=== PATIENT | female | born 1980 | race Caucasian/White ===

== ENCOUNTER 2018-04-26 09:10 | Inpatient (IN) | payer OTHER ==
[~2018-04-26 09:10] MED LIST: ELECTROLYTE-148 SOLN 1,000 ML IV ONE
[2018-04-26] MEDS ORDERED: CITRIC ACID/SODIUM CITRATE 30 ML UNIT-DOSE CUP PO ONE (09:26)
[2018-04-26] MEDS ORDERED: ELECTROLYTE-148 SOLN 1,000 ML IV SCH (09:30)
[2018-04-26 10:17] VITALS: BMI 44.6
[2018-04-26] MEDS ORDERED: TUBERCULIN PPD 5 TU/0.1ML SYRINGE (IN PATIENT USE ONLY) ID ONE (11:00)
--- NOTE | 2018-04-26 11:24 | HP ---
Past Medical History - Primary Care Physician PCP:: Joel Chiang - Admission Chief Complaint: 36 weeks, twins gestation , twin a breech , twinb iugr,, PIH History of Present Illness: 37 yo f g1 po with twins gestation 36 weeks , PIH, twinb iugr, referred by MFM for c/s , risks discussed History Source: Patient Limitations to Obtaining History: No Limitations - Past Medical History ...: 1 ...Para: 0 ...Term: 0 ...: 0 ...Spon : 0 ...Induced : 0 ...Multiple Gestation: 1 ...LMP: 08/20/17 ... Weeks Gestation by Dates: 35.3 ...EDC by Dates: 05/28/18 ...EDC by Sono: 05/24/18 Heme/Onc: Yes: Anemia - Past Surgical History Hx Myomectomy: No Hx Transabdominal Cerclage: No - Smoking History Smoking history: Never smoked Have you smoked in the past 12 months: No - Alcohol/Substance Use Hx Alcohol Use: No - Social History Usual Living Arrangement: Yes: With Spouse History of Recent Travel: No Home Medications - Allergies Allergies/Adverse Reactions: Allergies Allergy/AdvReac Type Severity Reaction Status Date / Time latex Allergy Intermediate Itching Verified 04/26/18 10:30 No Known Drug Allergies Allergy Verified 04/26/18 10:30 - Home Medications Home Medications: Ambulatory Orders Ferrous Sulfate [Feosol] 325 mg PO DAILY 04/20/18 Vitamins (Sjr) - 1 tab PO DAILY 04/26/18 Review of Systems - Review of Systems Constitutional: reports: No Symptoms HENT: reports: No Symptoms Neck: reports: No Symptoms Cardiovascular: reports: No Symptoms Respiratory: reports: No Symptoms Gastrointestinal: reports: No Symptoms Genitourinary: reports: No Symptoms Breasts: reports: No Symptoms Reported Musculoskeletal: reports: No Symptoms Integumentary: reports: No Symptoms Neurological: reports: No Symptoms Endocrine: reports: No Symptoms Hematology/Lymphatic: reports: No Symptoms Psychiatric: reports: No Symptoms Physical Exam - Maternity Vital Signs: Vital Signs Temperature 98.6 F 04/26/18 09:10 Pulse Rate 79 04/26/18 11:04 Respiratory Rate 17 04/26/18 11:04 Blood Pressure 158/96 04/26/18 11:04 O2 Sat by Pulse Oximetry (%) Constitutional: Yes: Well Nourished, No Distress, Calm Eyes: Yes: WNL, Conjunctiva Clear, EOM Intact HENT: Yes: WNL, Atraumatic, Normocephalic Neck: Yes: WNL, Supple, Trachea Midline Cardiovascular: Yes: WNL, Regular Rate and Rhythm Breast(s): Yes: WNL - Abdominal Exam/OB Fundal Height: 40 Number of Fetuses: Multiple Presentation: Vertex, Breech Contractions: No Regularity: Irritability Intensity: Unaware Monitor Mode: External Heart Rate Location: LUQ, RLQ Category: I Accelerations: Uniform Decelerations: None - Vaginal Exam/OB Vaginal Bleediing: No Speculum Exam: No Dilatation (cm): closed Effacement (%): 0 Amniotic Membrane Status: Intact Presentation: Nilson Breech Station: -3 - Physical Exam Musculoskeletal: Yes: Back Pain Edema: Yes Edema: LLE: 1+, RLE: 1+ Deep Tendon Reflex Grade: Normal +2 Hemorrhage Risk Assessment - Risk Factors Medium Risk Factors: Yes: Multiple gestation Risk Score: 1 Risk Level: Medium Risk Problem List - Problems (1) with 36 completed weeks gestation Code(s): Z3A.36 - 36 WEEKS GESTATION OF (2) PIH ( induced hypertension), antepartum (4) Advanced maternal age (AMA) in Code(s): UCX7966 - Assessment/Plan admit for c/s
[2018-04-26 12:20] LABS: URINE APPEARANCE SLCLOUDY; URINE BILIRUBIN NEGATIVE (<2.0 mg/dL); URINE COLOR DKYELLOW; URINE GLUCOSE (UA) NEGATIVE (NEGATIVE); URINE KETONE NEGATIVE (NEGATIVE); URINE LEUK ESTERASE NEGATIVE (NEGATIVE); URINE NITRITE NEGATIVE (NEGATIVE); URINE UROBILINOGEN NEGATIVE mg/dL (0.2-1.0)
[2018-04-26 12:25] LABS: URINE PROTEIN 2+ (NEGATIVE)
[2018-04-26 12:31] LABS: EPI CELLS RARE /HPF (FEW); URINE HYALINE CAST 2 /lpf; URINE MUCUS RARE
[2018-04-26] MEDS ORDERED: LABETALOL HCL 5 MG/1 ML (100MG/20 ML VIAL) ONE (12:52)
[2018-04-26] MEDS ORDERED: LABETALOL HCL 5 MG/1 ML (100MG/20 ML VIAL) IVPB ONE (13:07)
[2018-04-26] MEDS ORDERED: PHENYLEPHRINE HCL 10 MG/1 ML SINGLE DOSE VIAL ONE (14:56)
[2018-04-26] MEDS ORDERED: morphine SULFATE/Preservative Free 0.5 MG/ML (1cc Syringe) ONE (14:56)
[2018-04-26] MEDS ORDERED: BUPIVACAINE 0.75% IN DEXTROSE/PF 2ML AMPULE NR ONE (14:57)
[2018-04-26] MEDS ORDERED: ONDANSETRON 4 MG/2 ML VIAL IVPUSH PRN (15:21)
[2018-04-26] MEDS ORDERED: ACETAMINOPHEN 325 MG TABLET (FP) PO PRN (15:21)
[2018-04-26] MEDS ORDERED: OXYTOCIN 20 UNITS in 0.9% NS 40 UNIT/2,000 ML INFUS.BAG IV ONE (15:37)
[2018-04-26] MEDS ORDERED: WITCH HAZEL 50% (TUCKS) 40 PAD/JAR PAD TP PRN (15:52)
[2018-04-26] MEDS ORDERED: diphenhydrAMINE HCL 25 MG CAPSULE (FP) PO PRN (15:52)
[2018-04-26] MEDS ORDERED: METHYLERGONOVINE MALEATE 0.2 MG/1 ML AMP IM PRN (15:52)
[2018-04-26] MEDS ORDERED: oxyCODONE HCL 5 MG TABLET PO PRN (15:52)
[2018-04-26] MEDS ORDERED: BENZOCAINE 20% 57 GM BOTTLE TP PRN (15:52)
[2018-04-26] MEDS ORDERED: BENZOCAINE 28 GM HEMORRHOIDAL OINTMENT PR PRN (15:52)
[2018-04-26] MEDS ORDERED: OXYTOCIN 20 UNITS in 0.9% NS 20 UNIT/1,000 ML INFUS.BAG IV SCH ×2 (16:00→23:59)
[2018-04-26] MEDS ORDERED: DEXTROSE 5%-LACTATED RINGERS 1,000 ML IV SCH (16:00)
[2018-04-26] MEDS ORDERED: ACETAMINOPHEN INJECTION 100 ML IVPB ONE (17:13)
[2018-04-26] MEDS ORDERED: OXYTOCIN 20 UNITS in 0.9% NS 20 UNIT/1,000 ML INFUS.BAG IV ONE (17:19)
[2018-04-26] MEDS: ACETAMINOPHEN 1000 MG/100 ML VIAL (NON FORMULARY) IVPB PRN ×2 (17:20→23:46)
[2018-04-26] MEDS ORDERED: IBUPROFEN 800 MG/8 ML IJ IVPB ONE ×2 (17:56→18:15)
[2018-04-26] MEDS ORDERED: CEFAZOLIN 1 GM in DEXTROSE 5%-WATER - 50 ML IVPB SCH (18:00)
[2018-04-26] MEDS ORDERED: LABETALOL HCL 200 MG TABLET (FP) PO PRN (18:27)
[2018-04-26] MEDS ORDERED: DEXTROSE 5%-WATER - 50 ML IVPB ONE (21:00)
[2018-04-26] MEDS ORDERED: ceFAZolin SODIUM 1 GM VIAL ONE (21:00)
[2018-04-26] MEDS: CEFAZOLIN 1 GM in DEXTROSE 5%-WATER - 50 ML IVPB SCH (21:05)
[2018-04-27] MEDS ORDERED: DEXTROSE 5%-WATER - 50 ML IVPB ONE (06:11)
[2018-04-27] MEDS ORDERED: ceFAZolin SODIUM 1 GM VIAL ONE (06:11)
[2018-04-27] MEDS: ACETAMINOPHEN 1000 MG/100 ML VIAL (NON FORMULARY) IVPB PRN (06:13)
[2018-04-27] MEDS: CEFAZOLIN 1 GM in DEXTROSE 5%-WATER - 50 ML IVPB SCH (06:48)
[2018-04-27 08:05] LABS: BASO % 0.8 % (0-2.0); EOS % 0.8 % (0-4.5); HEMATOCRIT 34.9 % (32.4-45.2); LYMPH % 16.9 % (8-40); MCH 29.9 pg (25.7-33.7); MCHC 34.3 g/dl (32.0-36.0); MEAN CELL VOLUME 87.3 fl (80-96); MEAN PLT VOLUME 8.1 fl (7.5-11.1); MONO % 6.8 % (3.8-10.2); NEUT % 74.7 % (42.8-82.8); PLATELET COUNT 225 K/MM3 (134-434); RDW 13.9 % (11.6-15.6); WHITE BLOOD COUNT 14.2 K/mm3 (4.0-10.0)
[2018-04-27] MEDS: SIMETHICONE 80 MG TAB.CHEW (FP) PO PRN ×4 (09:24→21:02)
[2018-04-27] MEDS: ENOXAPARIN NA (PORCINE) 40 MG/0.4 ML DISP.SYRIN SQ SCH (09:24)
--- NOTE | 2018-04-27 10:28 | CONSULT ---
Consult - text type - Consultation Consultation Note: Renal Consult for hypertension This is a 37 year old woman who presented at 36 weeks twin gestation with PIH/ hypertension. Pt reports history of hypertension prior to that was tx with metoprolol but was discontinued b/c of drowsiness. BP was well controlled during pregnacy until last trimester when it was mildly elevated. Pt denies any HERNANDEZ, CP, SOb, N/V/D. Has 8/10 Abd pain. + leg swelling. Gained about 50 lbs during . PMhx: as above Allergies: NKDA Family Hx: Father has hypertension (diagnosed in 40's) Social hx: No T/A/D RoS: as per HPI Vital Signs Temperature 97.6 F 04/27/18 07:50 Pulse Rate 62 04/27/18 07:50 Respiratory Rate 20 04/27/18 08:00 Blood Pressure 141/93 04/27/18 07:50 O2 Sat by Pulse Oximetry (%) 99 04/26/18 17:10 Intake & Output 04/24/18 04/25/18 04/26/18 04/27/18 23:59 23:59 23:59 23:59 Intake Total 3100 1800 Output Total 900 Balance 3100 900 Weight 117.934 kg Mild distress due to pain MMM, No JVD, Neck supple + LE/ankle edema no clubbing or cyanosis CBC, BMP 04/27/18 07:42 Laboratory Tests 04/26/18 11:10 Urine Protein 2+ H Current Medications Acetaminophen (Tylenol -) 650 mg PO Q4H PRN PRN Reason: PAIN LEVEL 1-3 Acetaminophen (Ofirmev Injection -) 1,000 mg IVPB Q6H PRN PRN Reason: PAIN LEVEL 1-5 Last Admin: 04/27/18 06:13 Dose: 1,000 mg Benzocaine (Americaine 20% [place] -) 1 spray TP PRN PRN PRN Reason: Pain - Topical Benzocaine (Americaine Ointment -) 1 applic [place] PRN PRN PRN Reason: Pain - Topical Bisacodyl (Dulcolax Suppository -) 10 mg RC PRN PRN PRN Reason: CONSTIPATION Diphenhydramine HCl (Benadryl Injection -) 25 mg IVPUSH Q4H PRN PRN Reason: Pruritis Last Admin: 04/27/18 09:39 Dose: 25 mg Diphenhydramine HCl (Benadryl -) 25 mg PO Q8H PRN PRN Reason: FOR ITCHING Enoxaparin Sodium (Lovenox -) 40 mg SQ DAILY [facility] Last Admin: 04/27/18 09:24 Dose: 40 mg Parenteral Electrolytes (Plasma-Lyte 148 -) 1,000 mls @ 125 mls/hr IV ASDIR [facility] Last Admin: 04/26/18 10:30 Dose: 125 mls/hr Dextrose/Lactated Ringer's (D5-Lr -) 1,000 mls @ 125 mls/hr IV ASDIR [facility] Oxytocin/Sodium Chloride (Normal Saline+20 Units Oxytocin -) 20 unit in 1,000 mls @ 125 mls/hr IV ASDIR [facility] Ibuprofen (Motrin -) 600 mg PO Q4H PRN PRN Reason: PAIN 1-3; IF TYLENOL NOT WRK Labetalol HCl (Normodyne -) 200 mg PO Q6H PRN PRN Reason: HYPERTENSION Last Admin: 04/27/18 07:51 Dose: 200 mg Methylergonovine Maleate (Methergine Injection -) 0.2 mg IM Q4H PRN PRN Reason: EXCESSIVE BLEEDING Ondansetron HCl (Zofran Injection) 4 mg IVPUSH Q4H PRN PRN Reason: NAUSEA Oxycodone HCl (Roxicodone -) 5 mg PO Q4H PRN PRN Reason: PAIN LEVEL 4 - 6 Last Admin: 04/27/18 09:24 Dose: 5 mg Oxycodone HCl (Roxicodone -) 10 mg PO Q4H PRN PRN Reason: PAIN LEVEL 7 - 10 Senna/Docusate Sodium (Pericolace -) 2 tablet PO HS PRN PRN Reason: CONSTIPATION Simethicone (Mylicon -) 80 mg PO Q4H PRN PRN Reason: GAS Last Admin: 04/27/18 09:24 Dose: 80 mg Witch Jenni/Glycerin (Tucks Pads -) 1 pad TP PRN PRN PRN Reason: Pain - Topical 37 year old woman who presented at 36 weeks twin gestation with PIH/ hypertension. # Hypertension r/o preeclampsia #Twin gestation #Proteinuria Start Labetalol 200 mg Q6h PRN for SBP > 140 or DBP >90 and monitor for drowsiness Low salt diet Check urine for UPCR pain control with opiods, attempt to minimize NSIADs if possible Thank you Will follow Hawk Painter DO
[2018-04-27] MEDS: IBUPROFEN 600 MG TABLET (FP) PO PRN (11:11)
[2018-04-27] MEDS: ACETAMINOPHEN 325 MG TABLET (FP) PO PRN ×3 (13:24→21:02)
[2018-04-27] MEDS: oxyCODONE HCL 5 MG TABLET PO PRN ×3 (13:24→21:03)
[2018-04-27] MEDS ORDERED: BISACODYL 10 MG SUPP.RECT RC PRN (15:53)
--- NOTE | 2018-04-27 18:31 | PN ---
Progress Note (short form) - Note Progress Note: pod1s/p c/s ,twins, PIH no headache or blurred vision abdomen soft, no distension, no cva , no RUQ tenderness, incision dry, clean no calf tenderness plan monitor bp oob, ambulate pain management medical evaluation of bp CBC, BMP 04/27/18 07:42 Last Vital Signs Temp Pulse Resp BP Pulse Ox 98.1 F 80 20 137/86 99 04/27/18 18:00 04/27/18 18:00 04/27/18 18:00 04/27/18 18:00 04/26/18 17:10 Problem List - Problems (1) with 36 completed weeks gestation Code(s): Z3A.36 - 36 WEEKS GESTATION OF (2) PIH ( induced hypertension), antepartum (4) Advanced maternal age (AMA) in Code(s): [id number] -
[2018-04-27] MEDS: SENNOSIDES/DOCUSATE COMBO (SENNA PLUS) TABLET (UD) PO PRN (21:02)
[2018-04-27] MEDS: LABETALOL HCL 200 MG TABLET (FP) PO PRN (21:04)
[2018-04-28] MEDS: SIMETHICONE 80 MG TAB.CHEW (FP) PO PRN ×6 (01:16→22:29)
[2018-04-28] MEDS: oxyCODONE HCL 5 MG TABLET PO PRN ×6 (01:16→22:29)
[2018-04-28] MEDS: ACETAMINOPHEN 325 MG TABLET (FP) PO PRN ×5 (01:17→22:29)
[2018-04-28] MEDS: LABETALOL HCL 200 MG TABLET (FP) PO PRN (07:15)
[2018-04-28 07:27] LABS: CHLORIDE 108 mmol/L (98-107); POTASSIUM 4.2 mmol/L (3.5-5.1); SODIUM 142 mmol/L (136-145)
[2018-04-28 07:44] LABS: ALBUMIN 2.1 g/dl (3.4-5.0); ALK PHOS 117 U/L (45-117); ANION GAP 10 (8-16); BILIRUBIN,TOTAL 0.2 mg/dL (0.2-1.0); BLOOD UREA NITROGEN 11 mg/dL (7-18); CALCIUM 8.2 mg/dL (8.5-10.1); CO2 24 mmol/L (21-32); CREATININE 0.9 mg/dL (0.55-1.02); GLUCOSE,RANDOM 83 mg/dL (74-106); SGOT/AST 19 U/L (15-37); SGPT/ALT 17 U/L (12-78); TOT PROT 5.3 g/dl (6.4-8.2)
[2018-04-28] MEDS: ENOXAPARIN NA (PORCINE) 40 MG/0.4 ML DISP.SYRIN SQ SCH (09:46)
[2018-04-28] MEDS ORDERED: LABETALOL HCL 200 MG TABLET (FP) PO PRN (11:47)
[2018-04-28] MEDS: IBUPROFEN 600 MG TABLET (FP) PO PRN (13:20)
[2018-04-28] MEDS: NIFEdipine E.R. 30 MG TABLET (FP) PO SCH (13:20)
--- NOTE | 2018-04-28 14:06 | PN ---
Progress Note (short form) - Note Progress Note: Renal follow up for hypertension Pt seen and examined at the bedside continues to have abd pain, 7/10 BP high this am no HERNANDEZ, dizziness, burry vision or CP. Vital Signs Temperature 97.9 F 04/27/18 21:15 Pulse Rate 69 04/28/18 07:00 Respiratory Rate 20 04/28/18 07:00 Blood Pressure 170/98 04/28/18 07:00 O2 Sat by Pulse Oximetry (%) 99 04/26/18 17:10 Vital Signs Temperature 97.9 F 04/27/18 21:15 Pulse Rate 69 04/28/18 07:00 Respiratory Rate 20 04/28/18 07:00 Blood Pressure 170/98 04/28/18 07:00 O2 Sat by Pulse Oximetry (%) 99 04/26/18 17:10 NAD +edema in LE CBC, BMP 04/27/18 07:42 04/28/18 06:15 37 year old woman who presented at 36 weeks twin gestation with PIH/ hypertension. # Hypertension secondary to preeclampsia +/- underlying essential hypertension #Twin gestation #Proteinuria Start Nifedpine ER 30mg Daily Continue Labetalol PRN for SBP > 160 and DBP > 100 Low salt diet pain control will follow Hawk Painter DO
--- NOTE | 2018-04-28 17:14 | PN ---
Progress Note (short form) - Note Progress Note: pod 2 s/p c/s , PIH, ambulating, passing gas, no headache CBC, BMP 04/27/18 07:42 04/28/18 06:15 Last Vital Signs Temp Pulse Resp BP Pulse Ox 97.9 F 72 20 172/96 99 04/27/18 21:15 04/28/18 14:45 04/28/18 14:45 04/28/18 14:45 04/26/18 17:10 abdomen soft, no distension, no cva uterus firm, non tender lochia mild no calf tenderness impression PIH . cont. monitor BP ambulate cbc in am Problem List - Problems (1) with 36 completed weeks gestation Code(s): Z3A.36 - 36 WEEKS GESTATION OF (2) PIH ( induced hypertension), antepartum (4) Advanced maternal age (AMA) in Code(s): SSM9269 -
[2018-04-29] MEDS: SIMETHICONE 80 MG TAB.CHEW (FP) PO PRN ×5 (02:33→20:48)
[2018-04-29] MEDS: ACETAMINOPHEN 325 MG TABLET (FP) PO PRN ×4 (02:33→20:48)
[2018-04-29] MEDS: oxyCODONE HCL 5 MG TABLET PO PRN ×5 (02:33→20:48)
--- NOTE | 2018-04-29 06:17 | OP ---
DATE OF OPERATION: 04/26/2018 PREOPERATIVE DIAGNOSIS: , 36-week twin gestation, one twin intrauterine growth restriction and breach, and -induced hypertension. POSTOPERATIVE DIAGNOSIS: , 36-week twin gestation, one twin intrauterine growth restriction and breach, and -induced hypertension. PROCEDURE: Primary low segment transverse section. SURGEON: Joel Mar MD SERVICE AIDE: Radha Walls MD ESTIMATED BLOOD LOSS: 500 mL. ANESTHESIA: Spinal. ANESTHESIOLOGIST: Maria E Real MD OPERATION: The patient was taken to the operating room, had adequate spinal anesthesia. Abdomen and perineum were prepped and draped. Pfannenstiel abdominal skin incision was made. Abdominal wall was cut layer by layer, until peritoneum was exposed and incised. Upon entering the abdominal cavity, lower uterine segment was identified, and uterovesical fold of peritoneum was established, bladder was pushed down. Then, with the lower blade of the Bryant retractor in the pelvis, a low transverse uterine incision was made. Incision extended laterally. Amniotic sac was entered for twin A, who was breech. Clear amniotic fluid. Twin A was delivered footling breech without any difficulty. Cord clamped and cut, and live baby was delivered. Then, cord blood was obtained. Then, twin B, amniotic sac was entered. Twin B in vertex, delivered without any difficulty. Then, placenta was delivered manually. Uterine cavity was cleaned of all remaining tissue. Uterine incision was closed in 2 layers, 1st layer with 0 Biosyn continuous suture, the 2nd layer with 0 Biosyn imbricating the 1st layer. Bladder flap was closed with 0 Biosyn continuous suture. Both tubes and ovaries were checked, were normal. No active bleeding was seen. All the lap, sponge, and instrument counts were correct. Then, peritoneum was closed with 0 Biosyn continuous suture, muscles were brought together with interrupted sutures of 0 Biosyn, fascia was closed with 0 Biosyn continuous suture, subcutaneous fat with interrupted suture of 0 Biosyn, and the skin was closed with 4-0 Biosyn subcuticular continuous suture. Patient tolerated the procedure well, left the OR in good condition. JOEL MAR M.D. [id number]
--- NOTE | 2018-04-29 07:11 | PN ---
Progress Note (short form) - Note Progress Note: pod3 s/p c/s. PIH CBC, BMP 04/27/18 07:42 04/28/18 06:15 Last Vital Signs Temp Pulse Resp BP Pulse Ox 98.3 F 84 20 140/80 99 04/28/18 21:00 04/29/18 06:00 04/29/18 06:00 04/29/18 06:00 04/26/18 17:10 abdomen soft, no distension ,no cva no RUQ tenderness incision dry. healing good, no discharge,has red rash low abdominal wall ext, 1 + edema DTR normal pod3 on Procardia , BP better controlled, contact dermatitis plan ambulate, monitor BP , HC prn for rash cont . procardia Problem List - Problems (1) with 36 completed weeks gestation Code(s): Z3A.36 - 36 WEEKS GESTATION OF (2) PIH ( induced hypertension), antepartum (4) Advanced maternal age (AMA) in Code(s): EPP4289 -
[2018-04-29] MEDS ORDERED: HYDROCORTISONE 0.5% TOPICAL CREAM 30 GM TUBE TP PRN (08:13)
[2018-04-29 08:15] LABS: BASO % 0.5 % (0-2.0); EOS % 1.8 % (0-4.5); HEMATOCRIT 32.1 % (32.4-45.2); HEMOGLOBIN 11.2 GM/dL (10.7-15.3); LYMPH % 20.2 % (8-40); MCH 30.1 pg (25.7-33.7); MCHC 34.9 g/dl (32.0-36.0); MEAN CELL VOLUME 86.5 fl (80-96); MEAN PLT VOLUME 7.3 fl (7.5-11.1); MONO % 7.2 % (3.8-10.2); NEUT % 70.3 % (42.8-82.8); PLATELET COUNT 241 K/MM3 (134-434); RBC 3.71 M/mm3 (3.60-5.2); RDW 14.1 % (11.6-15.6); WHITE BLOOD COUNT 11.7 K/mm3 (4.0-10.0)
[2018-04-29] MEDS: IBUPROFEN 600 MG TABLET (FP) PO PRN (09:51)
[2018-04-29] MEDS: ENOXAPARIN NA (PORCINE) 40 MG/0.4 ML DISP.SYRIN SQ SCH (09:51)
[2018-04-29] MEDS: NIFEdipine E.R. 30 MG TABLET (FP) PO SCH (09:52)
[2018-04-29] MEDS ORDERED: oxyCODONE HCL 5 MG TABLET ONE (16:26)
[2018-04-29] MEDS ORDERED: oxyCODONE HCL 5 MG TABLET PO PRN (16:46)
[2018-04-29] MEDS: SENNOSIDES/DOCUSATE COMBO (SENNA PLUS) TABLET (UD) PO PRN (20:50)
[2018-04-30] MEDS: SIMETHICONE 80 MG TAB.CHEW (FP) PO PRN ×3 (00:34→11:04)
[2018-04-30] MEDS: oxyCODONE HCL 5 MG TABLET PO PRN ×2 (00:34→06:34)
[2018-04-30] MEDS: ACETAMINOPHEN 325 MG TABLET (FP) PO PRN ×3 (00:34→11:03)
[2018-04-30 06:36] VITALS: TEMP 98.1
[2018-04-30] MEDS: ENOXAPARIN NA (PORCINE) 40 MG/0.4 ML DISP.SYRIN SQ SCH (09:26)
[2018-04-30] MEDS: NIFEdipine E.R. 30 MG TABLET (FP) PO SCH (09:27)
--- NOTE | 2018-04-30 13:38 | PN ---
Progress Note (short form) - Note Progress Note: Renal follow up for hypertension Pt seen and examined at the bedside no acute complaints deneis any HERNANDEZ, blurry vision, N/V, dizziness Vital Signs Temperature 98.1 F 04/30/18 06:00 Pulse Rate 91 H 04/30/18 06:00 Respiratory Rate 20 04/30/18 06:00 Blood Pressure 154/100 04/30/18 06:00 O2 Sat by Pulse Oximetry (%) 99 04/26/18 17:10 Intake & Output 04/27/18 04/28/18 04/29/18 04/30/18 23:59 23:59 23:59 23:59 Intake Total 2200 Output Total 3300 Balance -1100 NAD +edema in LE CBC, BMP 04/29/18 07:53 04/28/18 06:15 Current Medications Acetaminophen (Tylenol -) 650 mg PO Q4H PRN PRN Reason: PAIN LEVEL 1-3 Last Admin: 04/30/18 11:03 Dose: 650 mg Benzocaine (Americaine 20% [place] -) 1 spray TP PRN PRN PRN Reason: Pain - Topical Benzocaine (Americaine Ointment -) 1 applic [place] PRN PRN PRN Reason: Pain - Topical Bisacodyl (Dulcolax Suppository -) 10 mg RC PRN PRN PRN Reason: CONSTIPATION Last Admin: 04/28/18 17:55 Dose: 10 mg Diphenhydramine HCl (Benadryl Injection -) 25 mg IVPUSH Q4H PRN PRN Reason: Pruritis Last Admin: 04/27/18 09:39 Dose: 25 mg Diphenhydramine HCl (Benadryl -) 25 mg PO Q8H PRN PRN Reason: FOR ITCHING Last Admin: 04/30/18 00:34 Dose: 25 mg Enoxaparin Sodium (Lovenox -) 40 mg SQ DAILY [facility] Last Admin: 04/30/18 09:26 Dose: 40 mg Hydrocortisone (Hytone 0.5% Cream -) 1 applic TP BID PRN PRN Reason: abdominal rash Last Admin: 04/29/18 18:13 Dose: 1 tube Parenteral Electrolytes (Plasma-Lyte 148 -) 1,000 mls @ 125 mls/hr IV ASDIR [facility] Last Admin: 04/26/18 10:30 Dose: 125 mls/hr Dextrose/Lactated Ringer's (D5-Lr -) 1,000 mls @ 125 mls/hr IV ASDIR [facility] Oxytocin/Sodium Chloride (Normal Saline+20 Units Oxytocin -) 20 unit in 1,000 mls @ 125 mls/hr IV ASDIR [facility] Last Admin: 04/27/18 12:54 Dose: Not Given Ibuprofen (Motrin -) 600 mg PO Q4H PRN PRN Reason: PAIN 1-3; IF TYLENOL NOT WRK Last Admin: 04/29/18 09:51 Dose: 600 mg Labetalol HCl (Normodyne -) 200 mg PO Q6H PRN PRN Reason: HYPERTENSION Last Admin: 04/28/18 15:00 Dose: 200 mg Methylergonovine Maleate (Methergine Injection -) 0.2 mg IM Q4H PRN PRN Reason: EXCESSIVE BLEEDING Nifedipine (Procardia Xl -) 30 mg PO DAILY [facility] Last Admin: 04/30/18 09:27 Dose: 30 mg Ondansetron HCl (Zofran Injection) 4 mg IVPUSH Q4H PRN PRN Reason: NAUSEA Oxycodone HCl (Roxicodone -) 5 mg PO Q4H PRN PRN Reason: PAIN LEVEL 4 - 6 Last Admin: 04/30/18 11:04 Dose: 5 mg Oxycodone HCl (Roxicodone -) 10 mg PO Q4H PRN PRN Reason: PAIN LEVEL 7 - 10 Last Admin: 04/30/18 06:34 Dose: 10 mg Senna/Docusate Sodium (Pericolace -) 2 tablet PO HS PRN PRN Reason: CONSTIPATION Last Admin: 04/29/18 20:50 Dose: 2 tablet Simethicone (Mylicon -) 80 mg PO Q4H PRN PRN Reason: GAS Last Admin: 04/30/18 11:04 Dose: 80 mg Witch Jenni/Glycerin (Tucks Pads -) 1 pad TP PRN PRN PRN Reason: Pain - Topical 37 year old woman who presented at 36 weeks twin gestation with PIH/ hypertension. # Hypertension secondary to preeclampsia +/- underlying essential hypertension #Twin gestation #Proteinuria BP improved with Nifedpine all readings have been under the 160/100 threshold continue Nifedpine ER 30mg Daily Low salt diet pain control contact information provided to make office follow up Rx called into [facility] [place] symptoms of hypotension explained to the patient and advised on what to do as well Thank you for allowing us to take part in the care of this patient Hawk Painter DO
[2018-04-30 14:21] VITALS: BP 153/93; PULSE 90
--- NOTE | 2018-05-03 17:31 | PATH ---
Surgical Pathology Report Patient Name: ASHLEY GUARDADO [facility]. Rec. 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 Specimen(s) Received PLACENTA Clinical History twin gestation, 36 weeks Twin A di/di with oligohydramnios and suspected IUGR Hepatitis B carrier chronic PIH Final Diagnosis PLACENTA: DIAMNIOTIC, DICHORIONIC, TWIN, THIRD TRIMESTER PLACENTA. PLACENTA "A" SHOWS A THREE-VESSELS CORD AND MEMBRANES WITH NO DIAGNOSTIC ABNORMALITIES. PLACENTA "B" SHOWS A THREE-VESSELS CORD AND MEMBRANES WITH NO DIAGNOSTIC ABNORMALITIES. Electronically Signed Emeka Hrarell M.D. Gross Description Received fresh labeled "placenta twin A and twin B," are 2 placentas joined by dividing membranes. The dividing membranes are marshall and opaque. There is one clip marking the umbilical cord arbitrarily designated placenta A and 2 clips marking the umbilical cord of arbitrarily designated placenta B. Placenta A is 275 g and 12.0 x 11.0 x 2.9 cm. The attached membranes are marshall, translucent with focal opacities insert marginally. The umbilical cord measures 34 cm in length and averages 0.9 cm in diameter. The cord inserts eccentrically, 3 cm to the nearest margin. No true knots or strictures are identified. The cut surface of the umbilical cord reveals 3 vessels. The surface is regan blue with minimal fibrin deposition and appropriate caliber vessels. The maternal surface is red-brown and intact. Sectioning reveals red-brown, spongy parenchyma. No lesions are identified. Placenta B is 261 g and 13.5 x 12.0 x 2.4 cm. The attached membranes are marshall, translucent with focal opacities and insert marginally. The umbilical cord measures 23 cm in length and averages 1.3 cm in diameter. The cord inserts eccentrically, 2 cm to the nearest margin. No true knots or strictures are identified. The cut surface of the umbilical cord reveals 3 vessels. The surface is regan blue with minimal fibrin deposition and appropriate caliber vessels. The maternal surface is red-brown and intact. Sectioning reveals red-brown, spongy parenchyma. No lesions are identified. Correctional Case Manager sections are submitted in 7 cassettes as follows: 1-placenta A membrane rolls and umbilical cord; 2-3-full thickness sections of placenta A; 4-dividing membranes; 5-placenta B membrane rolls and umbilical cord; 6-7-full thickness sections of placenta B 05/02/2018 [facility]05/02/2018
--- NOTE | 2018-05-06 05:03 | DS ---
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 Vital Signs: Vital Signs Temperature 98.1 F 04/30/18 10:00 Pulse Rate 90 04/30/18 14:00 Respiratory Rate 20 04/30/18 14:00 Blood Pressure 153/93 04/30/18 14:00 O2 Sat by Pulse Oximetry (%) 99 04/26/18 17:10 Constitutional: Yes: Well Nourished, No Distress, Calm Eyes: Yes: WNL, Conjunctiva Clear, EOM Intact HENT: Yes: WNL, Atraumatic, Normocephalic Neck: Yes: WNL, Supple, Trachea Midline Cardiovascular: Yes: WNL, Regular Rate and Rhythm Respiratory: Yes: WNL, Regular, CTA Bilaterally Gastrointestinal: Yes: WNL ...Rectal Exam: Yes: WNL Renal/: Yes: WNL ....Post : Yes: Uterus firm, Uterus non-tender, Slight lochia rubra Breast(s): Yes: WNL Musculoskeletal: Yes: WNL Extremities: Yes: WNL Edema: Yes Edema: LLE: Trace, RLE: Trace Integumentary: Yes: WNL Wound/Incision: Yes: Clean/Dry, Well Approximated, Sutures Intact Neurological: Yes: WNL, Alert, Oriented ...Motor Strength: WNL Psychiatric: Yes: WNL, Alert, Oriented Labs: CBC, BMP 04/29/18 07:53 04/28/18 06:15 Delivery - Delivery Section: Primary, Low Flap Transverse Type of Anesthesia: Spinal EBL (cc): 500 Delivery, Single - Stages of Labor Placenta: Yes: Spontaneous - Feeding Plan Initial Plan: Exclusive throughout hospitalization Delivery, Multiple Births - Stages of Labor Delivery Baby "A" Date: 04/26/18 Time: 15:24 Placenta/Membranes "A" Date: 04/26/18 Time: 15:27 Delivery Baby "B" Date: 04/26/18 Time: 15:26 Placenta/Membranes "B" Date: 04/26/18 Time: 15:27 - Condition of Multiple Births 1 (A) Bottom Brusher/Geosciences Associate Professor Present: Yes Bottom Brusher: Elías Santana Gender: Female Weight: 3 lb 13 oz Total Hours ROM (HRS/MINS): 4 2 (B) Bottom Brusher/Geosciences Associate Professor Present: Yes Gender: Female Weight: 4 lb 13 oz Total Hours ROM (HRS/MINS): 2 minutes - 1 (A) 1 Minute Score: 6 [place] 1 (A) 5 Minutes Score: 9 [place] 2 (B) 1 Minute Score: 9 [place] 2 (B) 5 Minutes Score: 9 Discharge Summary Reason For Visit: Procedures: Principal: primary LST c/s Hospital Course: PIH Condition: Good - Instructions Diet, Activity, Other Instructions: regular diet, follow up office 1 week. if headache, pain, heavy vaginal bleeding , fever call MD follow up with dr byers in one week. Referrals: Joel Chiang MD [Staff Physician] - Hawk Byers MD [Staff Physician] - Disposition: HOME - Home Medications Comprehensive Discharge Medication List: Ambulatory Orders Ferrous Sulfate [Feosol] 325 mg PO DAILY 04/20/18 Vitamins (Sjr) - 1 tab PO DAILY 04/26/18 Ibuprofen [Motrin -] 600 mg PO QID #28 tablet 04/28/18
== END 2018-04-30 16:00 | disposition home or self-care (01) | DRG 540 ==
LOC: JLDR 09:10 → J3W 18:00
PROVIDERS: ADMIT Obstetrics & Gynecology; ATTEND Obstetrics & Gynecology
PROC: 10D00Z1 Extraction of Products of Conception, Low, Open Approach (ICD-10-PCS; principal; 2018-04-26)
DX: O30.003 Twin pregnancy, unspecified number of placenta and unspecified number of amniotic sacs, third trimester (principal); O13.3 Gestational [pregnancy-induced] hypertension without significant proteinuria, third trimester; O14.93 Unspecified pre-eclampsia, third trimester; O60.14X0 Preterm labor third trimester with preterm delivery third trimester, not applicable or unspecified; O36.5930 Maternal care for other known or suspected poor fetal growth, third trimester, not applicable or unspecified; O32.1XX0 Maternal care for breech presentation, not applicable or unspecified; Z3A.36 36 weeks gestation of pregnancy; Z37.2 Twins, both liveborn
CPT/HCPCS: 36415; 80053; 81003; 81015; 82570; 84156; 85025; 88307-TC; J0131

== ENCOUNTER 2021-12-23 16:30 | Emergency (ER) | payer OTHER ==
[2021-12-23 17:00] VITALS: BP 146/95; PULSE 100; TEMP 98.1; BMI 34.3
[2021-12-23] MEDS ORDERED: ACETAMINOPHEN 500 MG TABLET (FP) PO ONE (18:35)
[2021-12-23 18:55] LABS: BASO % 0.9 % (0-2.0); EOS % 2.8 % (0-4.5); HEMATOCRIT 37.8 % (32.4-45.2); HEMOGLOBIN 12.9 GM/dL (10.7-15.3); LYMPH % 11.6 % (8-40); MCH 29.4 pg (25.7-33.7); MCHC 34.1 g/dl (32.0-36.0); MEAN CELL VOLUME 86.3 fl (80-96); MEAN PLT VOLUME 7.4 fl (7.5-11.1); MONO % 9.3 % (3.8-10.2); NEUT % 75.4 % (42.8-82.8); PLATELET COUNT 288 10^3/uL (134-434); RBC 4.38 M/mm3 (3.60-5.2); RDW 13.2 % (11.6-15.6); WHITE BLOOD COUNT 9.2 K/mm3 (4.0-10.0)
[2021-12-23] MEDS ORDERED: ACETAMINOPHEN 325 MG TABLET (FP) ONE (18:58)
[2021-12-23] MEDS ORDERED: IBUPROFEN 400 MG TABLET (FP) PO ONE ×2 (21:37→21:42)
[2021-12-23] MEDS ORDERED: METOCLOPRAMIDE HCL INJECTION 10 MG/2 ML VIAL IVPB ONE (21:41)
[2021-12-23] MEDS ORDERED: METOCLOPRAMIDE HCL INJECTION 10 MG/2 ML VIAL ONE (21:42)
== END 2021-12-23 22:48 | disposition home or self-care (01) ==
LOC: JER 16:30
PROC: 3E033GC Introduction of Other Therapeutic Substance into Peripheral Vein, Percutaneous Approach (ICD-10-PCS; principal; 2021-12-23)
DX: O20.9 Hemorrhage in early pregnancy, unspecified (principal); Z3A.01 Less than 8 weeks gestation of pregnancy
CPT/HCPCS: 36415; 76830-TC; 84702; 84703; 85025; 86850; 86900; 86901; 99284-25